=== PATIENT | female | born 1960 | race Caucasian/White ===

== ENCOUNTER → 2024-09-21 | Outpatient (CLI) | payer MEDICARE, OTHER ==
[2024-09-21 14:15] VITALS: BP 157/94; PULSE 110; RESP 16; TEMP 98
--- NOTE | 2024-09-21 15:01 | P.SLEEP ---
History of Present Illness DATE: 09/21/2024 CONSULTATION/NEW PATIENT EVALUATION HISTORY OF PRESENT ILLNESS/SLEEP-WAKE EVALUATION: 64-year-old lady had been ev aluated in the sleep center for multiple sleep problems and possible obstructive sleep apnea hypopnea syndrome. SLEEP SCHEDULE: Usually sleep schedule patient does not have regular sleep schedule. Patient goes to bed when she feels exhausted. FALLING ASLEEP: Patient has difficulties with falling asleep, no TV in bedroom. DURING SLEEP: Patient sleeps in different positions with snoring and sometimes episodes of awakenings from sleep, no nocturia. No history of hypnogogical hallucinations, sleep paralysis, or cataplexy. DURING THE DAY/WAKE STATE: Patient wake up tired, has difficulties to pay attention, has problems with memory, depression and anxiety. Sacul sleepiness scale is 2. Patient sometimes takes naps. PAST MEDICAL HISTORY: Anxiety, depression, PTSD, hyperlipidemia, hypo thyroidism. PAST SURGICAL HISTORY: Bilateral surgical treatment for cataract about 1 year ago. According to patient cataract was severe. Surgical treatment for carpal tunnel syndrome bilaterally. MEDICATIONS: Please see below. SOCIAL HISTORY: Please see below. FAMILY HISTORY: Please see below. REVIEW OF SYSTEMS: TO initiate sleep, awakenings from sleep. No fevers. No double vision. No recent chest pain. No shortness of breath. No abdominal pain. No bleeding episodes. No blood in urine. No seizure episodes. PHYSICAL EXAMINATION: GENERAL: A pleasant patient without any distress. VITAL SIGNS: Please see below, weight 187 pounds, BMI 34. HEENT: PERRLA, EOMI. Evaluation of oropharynx showed tongue protrudes midline, low position of soft palate Mallampati 4. NECK: Supple. No JVD. Thyroid is not palpable. 14 inches in circumference. LUNGS: Clear to percussion and to auscultation. Good air exchange. No wheezing or rhonchi. HEART: S1, S2 regular. No murmurs, gallops or rubs. ABDOMEN: Soft and nontender. Bowel sounds are present. No organomegaly appreciated. EXTREMITIES: No clubbing or cyanosis. [employer] OPERATOR: Awake, alert, and oriented x3. Cranial nerves 2 to 7 intact. There is no fasciculation or atrophy noted. No focal deficits observed. ASSESSMENT: 1. Snoring, extremely low position of soft palate Mallampati 4, awakenings from sleep. Obstructive sleep apnea hypopnea syndrome 2. Irregular sleep schedule with sleep delay syndrome. 3. Obesity, BMI 34. 4. PTSD. 5 depression. 6 . Anxiety. 7. Insomnia psychophysiological and secondary to anxiety. 8. Hypothyroidism. 9 . Status post bilateral surgical treatment for cataract, cataract was severe according to patient. Vision abnormalities could be the reason for problems with sleep schedule. 10. Hyperlipidemia. 11. Status post bilateral treatment for carpal tunnel syndrome. PLAN: 1. Polysomnography for evaluation of patient's breathing during sleep. 2. Sunlight exposure in the morning and no exposure to the bluelight in the evening. 3. Preferable position during sleep on the side. 4. No driving if patient feels any sleepiness. Patient is aware of civil and criminal liability for unsafe driving. 5. Sleep hygiene with regular sleep time for 7.5 hours. 6. Watching weight. Thank you very much for referring this patient for consultation. Sincerely, Héctor Castillo MD, PhD, FAASM. Diplomat of [place] [employer], Sleep Medicine Board by [place] [employer] [place] [employer] [facility] [place] cc: Past Medical History Past Medical History: Thyroid Disorder Additional Past Medical History / Comment(s): COMPLEX PTSD History of Any Multi-Drug Resistant Organisms: None Reported Past Surgical History: Ablation, Section Additional Past Surgical History / Comment(s): CARPAL TUNNEL, VAGINAL ABLATION, 3 BIOPSIES Past Anesthesia/Blood Transfusion Reactions: No Reported Reaction Past Psychological History: Anxiety, Depression, PTSD Smoking Status: Current every day smoker Past Alcohol Use History: Rare Past Drug Use History: Marijuana - Past Family History Father Family Medical History: Coronary Artery Disease (CAD), Hyperlipidemia Additional Family Medical History / Comment(s): BIPOLAR Mother Family Medical History: CVA/TIA, Rheumatoid Arthritis (RA) Additional Family Medical History / Comment(s): INSOMNIA, SINUS HEADACHES Medications and Allergies Home Medications Medication Instructions Recorded Confirmed Type Dextroamphetamine/Amphetamine 10 mg PO DAILY 09/21/24 09/21/24 History [Adderall] FLUoxetine HCL [Sarafem] 60 mg PO DAILY 09/21/24 09/21/24 History Levothyroxine Sodium 25 mcg PO DAILY 09/21/24 09/21/24 History Rosuvastatin [Crestor] 20 mg PO DAILY 09/21/24 09/21/24 History lamoTRIgine [LaMICtal ODT] 200 mg PO DAILY 09/21/24 09/21/24 History traZODone HCL [Desyrel] 50 mg PO DAILY 09/21/24 09/21/24 History Physical Exam Vitals: Vital Signs Temp Pulse Resp BP Pulse Ox 09/21/24 14:13 98 F 110 H 16 157/94 96 Intake and Output 09/20/24 09/21/24 09/21/24 22:59 06:59 14:59 Other: Weight 84.822 kg Sleep Note - Sleep Data ESS Total: 2 - Sleep Note Sleep Note: Temperature: 98 F Pulse Rate: 110 Respiratory Rate: 16 Blood Pressure: 157/94 SpO2: 96 Height: 5 ft 2 in Weight: 84.822 kg BMI: Neck Circumference: 14
== END ==
LOC: 3 N SLEEP 13:41
PROVIDERS: ATTEND Internal Medicine
DX: G47.33 Obstructive sleep apnea (adult) (pediatric) (principal); E66.9 Obesity, unspecified; F43.10 Post-traumatic stress disorder, unspecified; F32.A Depression, unspecified; F41.9 Anxiety disorder, unspecified; E03.9 Hypothyroidism, unspecified; E78.5 Hyperlipidemia, unspecified; Z98.890 Other specified postprocedural states; Z68.34 Body mass index [BMI] 34.0-34.9, adult
CPT/HCPCS: 99202